=== PATIENT | female | born 1985 | race Caucasian/White ===

== ENCOUNTER 2018-01-10 00:25 | Emergency (ER) | payer MEDICAID, OTHER ==
[2018-01-10] MEDS ORDERED: Sodium Chloride 0.9% 1000 ML 1,000 ML IV STA (01:36)
--- NOTE | 2018-01-10 02:06 | ERPHSYRPT ---
- History of Present Illness Time Seen by Provider: 01/10/18 02:02 Source: patient, family Exam Limitations: no limitations Patient Subjective Stated Complaint: Cough, ears draining, feels short of breath Triage Nursing Assessment: Pt A&O x3, pt complains of cough, ears draining, and being short of breath for the past week and a half, stated that she has green mucus, right lower lobe has crackles on expiration, skin has scattered sores that she said is from scabies, BP 100/86, all other vitals wnl, pulses normal, doesn't appear to be in any distress Physician History: pt is with URI and productive cough no vomiting or abd pain has some wheezing in right side - will need to perform breathing treatment even though pt as clinically indicated - and if persists will have no choice but to x-ray to rule out pneumonia. Timing/Duration: week(s) Cough Quality/Degree: productive cough Possible Cause: no prior episodes Modifying Factors: Improves With: coughing Allergies/Adverse Reactions: cephalexin monohydrate [From Keflex] Allergy (Verified 01/10/18 00:44) Penicillins Allergy (Verified 09/13/12 20:55) sulfamethoxazole [From Bactrim] Allergy (Verified 09/13/12 20:55) trimethoprim [From Bactrim] Allergy (Verified 09/13/12 20:55) TAMPON Allergy (Uncoded 09/13/12 20:55) Home Medications: Colace 100 mg PO DAILY 09/13/12 [History] Buprenorphine HCl/Naloxone HCl [Suboxone 8 mg-2 mg Tablet Sl] 2 each SL DAILY [History] Gabapentin 300 mg PO HS 01/10/18 [History] Hx Influenza Vaccination/Date Given: No Hx Pneumococcal Vaccination/Date Given: No - Past Medical History Pertinent Past Medical History: No - Past Surgical History Past Surgical History: Yes Neuro Surgical History: No Pertinent History Cardiac: No Pertinent History Respiratory: No Pertinent History Gastrointestinal: Cholecystectomy Genitourinary: No Pertinent History Musculoskeletal: No Pertinent History Female Surgical History: No Pertinent History, Other Other Surgical History: REMOVAL OF SKIN FROM OPENING TO VAGINA - Social History Smoking Status: Current every day smoker How long have you smoked: 12 YEARS Exposure to second hand smoke: Yes Drug Use: none Patient Lives Alone: No - Female History Hx Now: Yes Expected Date of Delivery: 02/25/18 - Nursing Vital Signs Nursing Vital Signs: Initial Vital Signs Temperature 98.6 F 01/10/18 00:30 Pulse Rate 85 01/10/18 00:30 Blood Pressure 100/86 01/10/18 00:30 O2 Sat by Pulse Oximetry 94 L 01/10/18 00:30 Pain Scale Pain Intensity 0 - Physical Exam SpO2: 94 Oxygen Delivery: Room Air - Course Nursing assessment & vital signs reviewed: Yes Ordered Tests: Active Orders 24 hr Category Date Time Status Heart Tones Q15M Care 01/10/18 01:37 Active CBC W DIFF Stat Lab 01/10/18 02:25 Completed CMP Stat Lab 01/10/18 02:25 Completed LIPASE Stat Lab 01/10/18 02:25 Completed Lactic Acid Stat Lab 01/10/18 02:25 Completed UA W/RFX UR CULTURE Stat Lab 01/10/18 02:45 Ordered Respiratory Nebulizer STAT RT 01/10/18 02:07 Active Medication Summary Discontinued Medications Generic Name Dose Route Start Last Admin Trade Name Freq PRN Reason Stop Dose Admin Al Hydrox/Mg Hydrox/Simethicone 30 ml 01/10/18 03:07 Maalox Es 30 Ml Unit Dose PO 01/10/18 03:08 STAT ONE Albuterol Sulfate 2.5 mg 01/10/18 02:07 01/10/18 02:21 Proventil 2.5 Mg/3 Ml Neb IH 01/10/18 02:08 2.5 mg STAT ONE Administration Albuterol Sulfate Confirm 01/10/18 02:16 Proventil 2.5 Mg/3 Ml Neb Administered 01/10/18 02:17 Dose 2.5 mg IH .STK-MED ONE Sodium Chloride 1,000 mls @ 999 mls/hr 01/10/18 01:36 01/10/18 03:01 Sodium Chloride 0.9% 1000 Ml IV 01/10/18 02:36 999 mls/hr .Q1H1M STA Administration Sodium Chloride Confirm 01/10/18 03:00 Sodium Chloride 0.9% 1000 Ml Administered 01/10/18 03:01 Dose 1,000 mls @ ud .ROUTE .STK-MED ONE Potassium Bicarbonate 25 meq 01/10/18 03:07 K-Lyte 25 Meq PO 01/10/18 03:08 STAT ONE Lab/Rad Data: Laboratory Result Diagrams 01/10/18 02:25 01/10/18 02:25 Laboratory Results 01/10/18 01/10/18 01/10/18 Range/Units 02:25 02:25 02:25 WBC (4.0-10.5) K/mm3 RBC (4.1-5.4) M/mm3 Hgb (12.0-16.0) gm/dl Hct (35-47) % MCV (78-100) fl MCH (26-32) pg MCHC (32-36) g/dl RDW (11.5-14.0) % Plt Count (150-450) K/mm3 MPV (6-9.5) fl Gran % (36.0-66.0) % Eos # (Auto) (0-0.5) Absolute Lymphs (auto) (1.0-4.6) Absolute Monos (auto) (0.0-1.3) Lymphocytes % (24.0-44.0) % Monocytes % (0.0-12.0) % Eosinophils % (0.00-5.0) % Basophils % (0.0-0.4) % Absolute Granulocytes (1.4-6.9) Basophils # (0-0.4) Sodium (137-145) mmol/L Potassium (3.5-5.1) mmol/L Chloride (98-107) mmol/L Carbon Dioxide (22-30) mmol/L Anion Gap (5-15) MEQ/L BUN (7-17) mg/dL Creatinine (0.52-1.04) mg/dL Estimated GFR ML/MIN Glucose (74-106) mg/dL Lactic Acid 1.1 (0.4-2.0) Calcium (8.4-10.2) mg/dL Total Bilirubin (0.2-1.3) mg/dL AST (14-36) U/L ALT (0-35) U/L Alkaline Phosphatase (38-126) U/L Serum Total Protein (6.3-8.2) g/dL Albumin (3.5-5.0) g/dL Lipase 37 (23-300) U/L Influenza Type A Ag NEGATIVE (NEGATIVE) Influenza Type B Ag NEGATIVE (NEGATIVE) RSV (PCR) NEGATIVE (Negative) 01/10/18 01/10/18 Range/Units 02:25 02:25 WBC 12.1 H (4.0-10.5) K/mm3 RBC 4.50 (4.1-5.4) M/mm3 Hgb 13.7 (12.0-16.0) gm/dl Hct 37.8 (35-47) % MCV 84.0 (78-100) fl MCH 30.4 (26-32) pg MCHC 36.2 H (32-36) g/dl RDW 12.3 (11.5-14.0) % Plt Count 259 (150-450) K/mm3 MPV 9.3 (6-9.5) fl Gran % 74.4 H (36.0-66.0) % Eos # (Auto) 0.28 (0-0.5) Absolute Lymphs (auto) 1.99 (1.0-4.6) Absolute Monos (auto) 0.80 (0.0-1.3) Lymphocytes % 16.5 L (24.0-44.0) % Monocytes % 6.6 (0.0-12.0) % Eosinophils % 2.3 (0.00-5.0) % Basophils % 0.2 (0.0-0.4) % Absolute Granulocytes 8.95 H (1.4-6.9) Basophils # 0.03 (0-0.4) Sodium 139 (137-145) mmol/L Potassium 3.1 L (3.5-5.1) mmol/L Chloride 102 (98-107) mmol/L Carbon Dioxide 26 (22-30) mmol/L Anion Gap 13.6 (5-15) MEQ/L BUN 4 L (7-17) mg/dL Creatinine 0.54 (0.52-1.04) mg/dL Estimated GFR > 60.0 ML/MIN Glucose 94 (74-106) mg/dL Lactic Acid (0.4-2.0) Calcium 9.3 (8.4-10.2) mg/dL Total Bilirubin 0.80 (0.2-1.3) mg/dL AST 46 H (14-36) U/L ALT 32 (0-35) U/L Alkaline Phosphatase 187 H (38-126) U/L Serum Total Protein 6.8 (6.3-8.2) g/dL Albumin 3.5 (3.5-5.0) g/dL Lipase (23-300) U/L Influenza Type A Ag (NEGATIVE) Influenza Type B Ag (NEGATIVE) RSV (PCR) (Negative) - Progress Progress: improved, re-examined Air Movement: good Progress Note: 01/10/18 02:40 the bs did not clear with breathing treatment , and consistent with an area of consolidation on left side , also with slight decrease of pulse ox . discussed risk and benefit from x-ray verses treating as pneumonia with zithramax and pt prefers to go ahead with treatment. pt is tolerating diet without vomiting at this time; 01/10/18 03:28 Blood Culture(s) Obtained: No Antibiotics given: Yes Counseled pt/family regarding: lab results, diagnosis, need for follow-up - Departure Time of Disposition: 03:29 Departure Disposition: Home Clinical Impression: Walking pneumonia, Hypokalemia Condition: Good Critical Care Time: No Referrals: DOCTOR,NO FAMILY [Primary Care Provider] - Instructions: Community-Acquired Pneumonia in Adults, Atypical Pneumonia ( Mycoplasma and Viral) (DC), Hypokalemia (DC) Additional Instructions: we are treating for mild pneumonia due to your lungs not clearing after treatment and symptoms consistent with walking pneumonia. You also have a low potassium which will need to be rechecked with your dr . followup with your dr for your lungs and return meantime if not improving, or other concerns. Prescriptions: Azithromycin 250 mg [Zithromax 250 MG TABLET] 250 mg PO ZPACK #6 tablet
[2018-01-10] MEDS ORDERED: PROVENTIL 2.5 MG/3 ML NEB IH ONE ×2 (02:07→02:16)
[2018-01-10 02:29] LABS: BASOPHIL % 0.2 % (0.0-0.4); Basophil (Absolute #) 0.03 (0-0.4); Eosinophil % 2.3 % (0.00-5.0); Eosinophil (Absolute #) 0.28 (0-0.5); Granulocyte Absolute (ANC) 8.95 (1.4-6.9); Granulocytes % 74.4 % (36.0-66.0); Hematocrit 37.8 % (35-47); Hemoglobin 13.7 gm/dl (12.0-16.0); Lymphocyte (Absolute #) 1.99 (1.0-4.6); Lymphocytes % 16.5 % (24.0-44.0); Mean Corpuscular Hemoglobin 30.4 pg (26-32); Mean Corpuscular Hgb Concent. 36.2 g/dl (32-36); Mean Platelet Volume 9.3 fl (6-9.5); Monocytes % 6.6 % (0.0-12.0); Platelet Count 259 K/mm3 (150-450); Red Cell Distribution Width 12.3 % (11.5-14.0); White Blood Count 12.1 K/mm3 (4.0-10.5)
[2018-01-10 02:56] LABS: ALBUMIN 3.5 g/dL (3.5-5.0); ALKALINE PHOSPHATASE 187 U/L (38-126); ANION GAP 13.6 MEQ/L (5-15); BLOOD UREA NITROGEN 4 mg/dL (7-17); CHLORIDE 102 mmol/L (98-107); Calcium 9.3 mg/dL (8.4-10.2); Carbon Dioxide 26 mmol/L (22-30); Creatinine 1 0.54 mg/dL (0.52-1.04); Glucose 94 mg/dL (74-106); SGOT/AST 46 U/L (14-36); SGPT/ALT 32 U/L (0-35); SODIUM 139 mmol/L (137-145); Total Protein 6.8 g/dL (6.3-8.2)
[2018-01-10 02:58] LABS: Potassium 3.1 mmol/L (3.5-5.1)
[2018-01-10] MEDS ORDERED: Sodium Chloride 0.9% 1000 ML 1,000 ML ONE (03:00)
[2018-01-10] MEDS ORDERED: MAALOX ES 30 ML UNIT DOSE PO ONE (03:07)
[2018-01-10] MEDS ORDERED: K-LYTE 25 MEQ PO ONE (03:07)
[2018-01-10 03:08] LABS: INFLUENZA A NEGATIVE (NEGATIVE); INFLUENZA B NEGATIVE (NEGATIVE); RESPIRATORY SYNCTIAL VIRUS NEGATIVE (Negative)
[2018-01-10] MEDS ORDERED: K-LYTE 25 MEQ ONE (03:27)
[2018-01-10] MEDS ORDERED: MAALOX ES 30 ML UNIT DOSE ONE (03:27)
[2018-01-10] MEDS ORDERED: Zithromax 250 MG TABLET PO ONE (03:35)
[2018-01-10] MEDS ORDERED: Zithromax 250 MG TABLET ONE (03:39)
[2018-01-10 03:47] VITALS: BP 109/81; PULSE 83; O2SAT 97
[2018-01-10 04:02] LABS: Appearance CLEAR (CLEAR); Bilirubin NEGATIVE (NEGATIVE); Blood NEGATIVE Ery/ul (0-5); Glucose NEGATIVE (NEGATIVE); Ketones NEGATIVE (NEGATIVE); Leukocyte Esterase NEGATIVE (NEGATIVE); Nitrite NEGATIVE (NEGATIVE); Protein,Urine Dip NEGATIVE (Negative); Urobilinogen 4 mg/dL (0-1)
== END 2018-01-10 04:01 | disposition home or self-care (01) ==
LOC: ED 00:25
DX: O99.519 Diseases of the respiratory system complicating pregnancy, unspecified trimester (principal); J18.9 Pneumonia, unspecified organism; E87.6 Hypokalemia; Z79.899 Other long term (current) drug therapy
CPT/HCPCS: 36415; 80053; 81002; 83605; 83690; 85025; 87631; 94150; 94640; 96360; 99284; J7609; A9270-GY